=== PATIENT | male | born 1965 | race Caucasian/White ===

== ENCOUNTER 2021-07-27 16:23 | Inpatient (IN) | payer OTHER ==
[2021-07-27 17:33] LABS: #Lymphocytes 0.4 thou/uL (1.20-3.40); #Monocytes 0.1 thou/uL (0.11-0.59); #Neutrophils 3.3 thou/uL (1.40-6.50); %Basophils 1.1 % (0.0-1.0); %Eosinophils 0.1 % (0.0-10.0); %Lymphocytes 10.3 % (21.0-51.0); %Monocytes 2.3 % (0.0-10.0); %Neutrophils 86.2 % (42.0-75.0); Hemoglobin 15.8 g/dL (14.0-18.0); Mean Corpuscular HGB CONC 32.3 g/dL (32.0-36.0); Mean Corpuscular Hemoglobin 29.8 pg (27.0-31.0); Mean Corpuscular Volume 92.1 fL (78.0-98.0); Platelet Count 188 thou/uL (130-400); RBC Distribution Width 12.6 % (11.5-14.5); Red Blood Cell (RBC) Count 5.31 mill/uL (4.70-6.10); White Blood Cell (WBC) Count 3.8 thou/uL (4.8-10.8)
[2021-07-27 18:01] LABS: ALT (SGPT) 44 U/L (8-55); AST (SGOT) 48 U/L (5-34); Albumin 3.7 g/dL (3.5-5.0); Alkaline Phosphatase 95 U/L (40-110); Anion Gap 12 mmol/L (10-20); BUN (Urea Nitrogen) 17 mg/dL (8.4-25.7); Bilirubin, Total 0.6 mg/dL (0.2-1.2); Calc. Creatinine Clearance 0 mL/min (70-130); Calcium 8.3 mg/dL (7.8-10.44); Carbon Dioxide 26 mmol/L (22-29); Chloride 101 mmol/L (98-107); Globulin 3.1 g/dL (2.4-3.5); Glucose 179 mg/dL (70-105); Potassium 4.4 mmol/L (3.5-5.1); Protein, Total 6.8 g/dL (6.0-8.3); Sodium 135 mmol/L (136-145)
[2021-07-27] MEDS ORDERED: Albuterol 200 PUFF (6.7GM INHALER) ONE (18:31)
[2021-07-27] MEDS ORDERED: Enoxaparin Sodium 100 MG/ML SYRINGE ONE (21:01)
[2021-07-27] MEDS ORDERED: Communication Order-Pharmacy FS SCH (22:45)
[2021-07-27] MEDS ORDERED: Cepastat Lozenges 1 LOZ PO PRN (23:12)
[2021-07-27] MEDS ORDERED: Ondansetron PF 4 MG/2 ML Vial IVP PRN (23:13)
[2021-07-27] MEDS ORDERED: Benzonatate 100 MG CAP ONE (23:57)
[2021-07-27] MEDS ORDERED: Acetaminophen/Codeine 30-300mg Tablet ONE (23:57)
[2021-07-27] MEDS ORDERED: tiZANidine HCl 4 MG TAB PO SCH (23:59)
[2021-07-27] MEDS ORDERED: Acetaminophen/Codeine 30-300mg Tablet PO SCH (23:59)
[2021-07-28] MEDS: Benzonatate 100 MG CAP PO PRN ×2 (00:08→17:01)
[2021-07-28] MEDS: Lactated Ringer's 1,000 ML IV SCH ×3 (00:12→17:02)
[2021-07-28 04:05] LABS: SARS-CoV-2 NAA Rapid Test DETECTED (NotDetected)
[2021-07-28 05:41] LABS: #Lymphocytes 0.9 thou/uL (1.20-3.40); #Monocytes 0.4 thou/uL (0.11-0.59); #Neutrophils 3.5 thou/uL (1.40-6.50); %Basophils 0.7 % (0.0-1.0); %Eosinophils 0.1 % (0.0-10.0); %Lymphocytes 18.3 % (21.0-51.0); %Monocytes 8.6 % (0.0-10.0); %Neutrophils 72.4 % (42.0-75.0); Hemoglobin 14.3 g/dL (14.0-18.0); Mean Corpuscular HGB CONC 33.4 g/dL (32.0-36.0); Mean Corpuscular Hemoglobin 31.1 pg (27.0-31.0); Mean Corpuscular Volume 93.1 fL (78.0-98.0); Mean Platelet Volume 7.1 fL (7.4-10.4); Platelet Count 185 thou/uL (130-400); RBC Distribution Width 12.6 % (11.5-14.5); White Blood Cell (WBC) Count 4.9 thou/uL (4.8-10.8)
[2021-07-28 06:10] LABS: ALT (SGPT) 40 U/L (8-55); AST (SGOT) 40 U/L (5-34); Albumin 3.3 g/dL (3.5-5.0); Alkaline Phosphatase 77 U/L (40-110); Anion Gap 13 mmol/L (10-20); BUN (Urea Nitrogen) 20 mg/dL (8.4-25.7); Bilirubin, Total 0.4 mg/dL (0.2-1.2); CRP (Inflammatory) 8.19 mg/dL (= or < 0.5); Calc. Creatinine Clearance 115 mL/min (70-130); Calcium 8.4 mg/dL (7.8-10.44); Carbon Dioxide 26 mmol/L (22-29); Chloride 102 mmol/L (98-107); Globulin 2.6 g/dL (2.4-3.5); Glucose 138 mg/dL (70-105); Potassium 4.7 mmol/L (3.5-5.1); Protein, Total 5.9 g/dL (6.0-8.3); Sodium 136 mmol/L (136-145)
[2021-07-28] MEDS: Acetaminophen 500 MG TAB PO PRN (08:47)
[2021-07-28] MEDS: Enoxaparin Sodium 100 MG/ML SYRINGE SC SCH ×2 (08:47→20:03)
[2021-07-28] MEDS ORDERED: Dexamethasone 6 MG in Sodium Chloride 0.9% 50 ML IVPB SCH (09:00)
[2021-07-28] MEDS ORDERED: Dexamethasone 6 MG in Sodium Chloride 0.9% 50 ML SLOW IVP SCH (11:00)
[2021-07-28 17:01] VITALS: BMI 30.5
[2021-07-28] MEDS ORDERED: tiZANidine HCl 4 MG TAB PO SCH (21:00)
[2021-07-28] MEDS ORDERED: Acetaminophen/Codeine 30-300mg Tablet PO SCH (21:00)
[2021-07-29] MEDS ORDERED: Famotidine 20 MG TAB PO SCH (00:36)
[2021-07-29] MEDS: Lactated Ringer's 1,000 ML IV SCH (03:07)
[2021-07-29] MEDS: Acetaminophen 500 MG TAB PO PRN (07:34)
[2021-07-29] MEDS: Enoxaparin Sodium 100 MG/ML SYRINGE SC SCH (07:42)
[2021-07-29] MEDS: Benzonatate 100 MG CAP PO PRN (07:43)
[2021-07-29] MEDS ORDERED: Ketorolac Tromethamine 30 MG/ML VIAL IVP SCH (09:15)
[2021-07-29 09:18] LABS: #Monocytes 0.6 thou/uL (0.11-0.59); #Neutrophils 9.3 thou/uL (1.40-6.50); %Basophils 0.1 % (0.0-1.0); %Eosinophils 0.1 % (0.0-10.0); %Lymphocytes 9.5 % (21.0-51.0); %Monocytes 5.1 % (0.0-10.0); %Neutrophils 85.3 % (42.0-75.0); Hemoglobin 14.3 g/dL (14.0-18.0); Mean Corpuscular HGB CONC 34.1 g/dL (32.0-36.0); Mean Corpuscular Hemoglobin 31.5 pg (27.0-31.0); Mean Corpuscular Volume 92.4 fL (78.0-98.0); Mean Platelet Volume 6.4 fL (7.4-10.4); Platelet Count 242 thou/uL (130-400); RBC Distribution Width 12.4 % (11.5-14.5); Red Blood Cell (RBC) Count 4.54 mill/uL (4.70-6.10); White Blood Cell (WBC) Count 10.8 thou/uL (4.8-10.8)
[2021-07-29 09:38] LABS: ALT (SGPT) 50 U/L (8-55); AST (SGOT) 43 U/L (5-34); Albumin 3.1 g/dL (3.5-5.0); Alkaline Phosphatase 80 U/L (40-110); Anion Gap 13 mmol/L (10-20); BUN (Urea Nitrogen) 16 mg/dL (8.4-25.7); Bilirubin, Total 0.5 mg/dL (0.2-1.2); Calc. Creatinine Clearance 139 mL/min (70-130); Carbon Dioxide 26 mmol/L (22-29); Chloride 103 mmol/L (98-107); Globulin 2.4 g/dL (2.4-3.5); Glucose 118 mg/dL (70-105); Potassium 3.9 mmol/L (3.5-5.1); Protein, Total 5.5 g/dL (6.0-8.3); Sodium 138 mmol/L (136-145)
[2021-07-29] MEDS ORDERED: Dexamethasone 4 mg/ml Vial SLOW IVP SCH (11:00)
[2021-07-29 14:54] VITALS: BP 136/80; TEMP 97.8
[2021-07-29] MEDS ORDERED: Apixaban 5 MG TAB PO SCH (21:00)
== END 2021-07-29 15:30 | disposition home or self-care (01) | DRG 177 ==
LOC: ERS 16:23 → ERHOLD 20:55 → 2SW 22:15
PROVIDERS: ADMIT Family Medicine; ATTEND Family Medicine
PROC: 8E0ZXY6 Isolation (ICD-10-PCS; principal; 2021-07-27)
DX: U07.1 COVID-19 (principal); J12.82 Pneumonia due to coronavirus disease 2019; J96.01 Acute respiratory failure with hypoxia; I26.99 Other pulmonary embolism without acute cor pulmonale; E86.0 Dehydration; G89.29 Other chronic pain; M54.9 Dorsalgia, unspecified; Z79.01 Long term (current) use of anticoagulants; Z79.899 Other long term (current) drug therapy
CPT/HCPCS: 36415; 71045; 71275; 80053; 82728; 83615; 84484; 85025; 85379; 86140; 93005; 96372; J1100; J1650; J1885; J2405; J7120; U0002

== ENCOUNTER 2022-12-27 18:24 | Inpatient (IN) | payer BC, OTHER, SELFPAY ==
[2022-12-27 20:02] LABS: #Eosinphils 0.3 thou/uL (0.0-0.7); #Lymphocytes 2.5 thou/uL (1.20-3.40); #Monocytes 0.5 thou/uL (0.11-0.59); #Neutrophils 4.2 thou/uL (1.40-6.50); %Basophils 0.5 % (0.0-1.0); %Eosinophils 4.1 % (0.0-10.0); %Lymphocytes 33.1 % (21.0-51.0); %Monocytes 6.8 % (0.0-10.0); %Neutrophils 55.5 % (42.0-75.0); Mean Corpuscular HGB CONC 33.8 g/dL (32.0-36.0); Mean Corpuscular Hemoglobin 30.2 pg (27.0-31.0); Mean Corpuscular Volume 89.5 fl (78.0-98.0); Mean Platelet Volume 6.9 fL (7.4-10.4); Platelet Count 271 10x3/uL (130-400); RBC Distribution Width 12.8 % (11.5-14.5); Red Blood Cell (RBC) Count 4.96 mill/uL (4.70-6.10); White Blood Cell (WBC) Count 7.5 10x3/uL (4.8-10.8)
[2022-12-27 20:14] LABS: INR-International Normal Ratio 1.1; Prothrombin Time 14.7 sec (12.0-14.7)
[2022-12-27 20:15] LABS: PTT 31.7 sec (22.9-36.1)
[2022-12-27 20:23] LABS: ALT (SGPT) 19 U/L (8-55); AST (SGOT) 20 U/L (5-34); Albumin 4.2 g/dL (3.5-5.0); Alkaline Phosphatase 82 U/L (40-110); Anion Gap 12 mmol/L (10-20); BUN (Urea Nitrogen) 16 mg/dL (8.4-25.7); Bilirubin, Total 0.4 mg/dL (0.2-1.2); Calc. Creatinine Clearance 0 mL/min (70-130); Calcium 8.9 mg/dL (7.8-10.44); Carbon Dioxide 23 mmol/L (22-29); Chloride 106 mmol/L (98-107); Estimated GFR 95; Globulin 3.1 g/dL (2.4-3.5); Glucose 98 mg/dL (70-105); Potassium 3.9 mmol/L (3.5-5.1); Protein, Total 7.3 g/dL (6.0-8.3); Sodium 137 mmol/L (136-145)
[2022-12-27] MEDS ORDERED: Enoxaparin 120 MG/0.8 ML SYRINGE SC SCH (22:45)
[2022-12-27] MEDS ORDERED: Warfarin Sodium 3 MG TAB PO SCH (23:15)
[2022-12-27] MEDS ORDERED: Acetaminophen/Codeine 30-300mg Tablet ONE (23:20)
[2022-12-27] MEDS: Acetaminophen/Codeine 30-300mg Tablet PO SCH (23:28)
[2022-12-27] MEDS ORDERED: tiZANidine HCl 4 MG TAB PO SCH (23:30)
[2022-12-28 01:21] VITALS: BMI 32.5
[2022-12-28] MEDS: Enoxaparin 120 MG/0.8 ML SYRINGE SC SCH ×2 (09:39→20:08)
[2022-12-28] MEDS ORDERED: Warfarin Sodium 10 MG TAB PO SCH (17:00)
[2022-12-28] MEDS ORDERED: Prochlorperazine Edisylate 10 MG in Sodium Chloride 0.9% 50 ML IVPB SCH (18:00)
[2022-12-28] MEDS: tiZANidine HCl 4 MG TAB PO SCH (20:10)
[2022-12-28] MEDS: Acetaminophen/Codeine 30-300mg Tablet PO SCH (20:11)
[2022-12-28] MEDS ORDERED: Ondansetron PF 4 MG/2 ML Vial IVP PRN (20:46)
[2022-12-28] MEDS ORDERED: tiZANidine HCl 4 MG TAB PO SCH (21:00)
[2022-12-29 05:08] LABS: Hemoglobin 15.8 g/dL (14.0-18.0); Platelet Count 237 10x3/uL (130-400)
[2022-12-29 05:21] LABS: INR-International Normal Ratio 1.4; Prothrombin Time 17.6 sec (12.0-14.7)
[2022-12-29] MEDS: Enoxaparin 120 MG/0.8 ML SYRINGE SC SCH ×2 (09:55→21:18)
[2022-12-29] MEDS: Warfarin Sodium 3 MG TAB PO SCH (17:15)
[2022-12-29] MEDS: Acetaminophen/Codeine 30-300mg Tablet PO SCH (21:21)
[2022-12-29] MEDS: tiZANidine HCl 4 MG TAB PO SCH (21:22)
[2022-12-30 05:41] LABS: INR-International Normal Ratio 1.5
[2022-12-30 06:33] LABS: ALT (SGPT) 23 U/L (8-55); AST (SGOT) 20 U/L (5-34); Albumin 3.7 g/dL (3.5-5.0); Alkaline Phosphatase 79 U/L (40-110); Anion Gap 13 mmol/L (10-20); BUN (Urea Nitrogen) 16 mg/dL (8.4-25.7); Bilirubin, Total 0.3 mg/dL (0.2-1.2); Calc. Creatinine Clearance 125 mL/min (70-130); Carbon Dioxide 23 mmol/L (22-29); Chloride 108 mmol/L (98-107); Estimated GFR 88; Globulin 2.9 g/dL (2.4-3.5); Glucose 108 mg/dL (70-105); Potassium 3.9 mmol/L (3.5-5.1); Protein, Total 6.6 g/dL (6.0-8.3); Sodium 140 mmol/L (136-145)
[2022-12-30] MEDS: Enoxaparin 120 MG/0.8 ML SYRINGE SC SCH ×2 (08:58→21:13)
[2022-12-30] MEDS ORDERED: Polyethylene Glycol 3350 17 GM Packet PO SCH (10:00)
[2022-12-30] MEDS: Warfarin Sodium 3 MG TAB PO SCH (16:40)
[2022-12-30] MEDS ORDERED: diphenhydrAMINE 25 MG CAP PO PRN (18:13)
[2022-12-30] MEDS ORDERED: diphenhydrAMINE 25 MG CAP PO SCH (18:13)
[2022-12-30] MEDS: Acetaminophen/Codeine 30-300mg Tablet PO SCH (21:13)
[2022-12-30] MEDS: tiZANidine HCl 4 MG TAB PO SCH (21:14)
[2022-12-31] MEDS ORDERED: FLU VACC QS2022-23(6MOS UP)/PF 60 MCG/0.5 ML SYRINGE IM ONE (01:30)
[2022-12-31 06:25] LABS: Hemoglobin 15.3 g/dL (14.0-18.0); Platelet Count 247 10x3/uL (130-400)
[2022-12-31 06:31] LABS: INR-International Normal Ratio 1.8; Prothrombin Time 21.2 sec (12.0-14.7)
[2022-12-31] MEDS ORDERED: Polyethylene Glycol 3350 17 GM Packet PO SCH (09:00)
[2022-12-31] MEDS: Enoxaparin 120 MG/0.8 ML SYRINGE SC SCH ×2 (09:47→20:11)
[2022-12-31] MEDS: Warfarin Sodium 3 MG TAB PO SCH (17:14)
[2022-12-31] MEDS: Acetaminophen/Codeine 30-300mg Tablet PO SCH (20:11)
[2022-12-31] MEDS: tiZANidine HCl 4 MG TAB PO SCH (20:12)
[2023-01-01 06:23] LABS: INR-International Normal Ratio 1.8; Prothrombin Time 21.2 sec (12.0-14.7)
[2023-01-01 07:22] LABS: #Eosinphils 0.3 thou/uL (0.0-0.7); #Monocytes 0.5 thou/uL (0.11-0.59); #Neutrophils 3.6 thou/uL (1.40-6.50); %Basophils 0.7 % (0.0-1.0); %Lymphocytes 30.7 % (21.0-51.0); %Monocytes 7.6 % (0.0-10.0); Hemoglobin 15.6 g/dL (14.0-18.0); Mean Corpuscular HGB CONC 33.3 g/dL (32.0-36.0); Mean Corpuscular Hemoglobin 30.4 pg (27.0-31.0); Mean Corpuscular Volume 91.3 fl (78.0-98.0); Mean Platelet Volume 7.7 fL (7.4-10.4); Platelet Count 241 10x3/uL (130-400); Red Blood Cell (RBC) Count 5.14 mill/uL (4.70-6.10); White Blood Cell (WBC) Count 6.4 10x3/uL (4.8-10.8)
[2023-01-01 07:30] LABS: ALT (SGPT) 31 U/L (8-55); AST (SGOT) 25 U/L (5-34); Alkaline Phosphatase 79 U/L (40-110); Anion Gap 13 mmol/L (10-20); BUN (Urea Nitrogen) 11 mg/dL (8.4-25.7); Bilirubin, Total 0.6 mg/dL (0.2-1.2); Calc. Creatinine Clearance 127 mL/min (70-130); Carbon Dioxide 25 mmol/L (22-29); Chloride 104 mmol/L (98-107); Estimated GFR 89; Globulin 2.9 g/dL (2.4-3.5); Glucose 90 mg/dL (70-105); Potassium 4.2 mmol/L (3.5-5.1); Protein, Total 6.9 g/dL (6.0-8.3); Sodium 138 mmol/L (136-145)
[2023-01-01 08:26] VITALS: BP 171/99; TEMP 98.3
== END 2023-01-01 09:05 | disposition left against medical advice (07) | DRG 300 ==
LOC: ERS 18:24 → ERHOLD 21:58 → MSONC 12-28 00:58
PROVIDERS: ADMIT Student in an Organized Health Care Education/Training Program; ATTEND Student in an Organized Health Care Education/Training Program
DX: I82.432 Acute embolism and thrombosis of left popliteal vein (principal); D68.51 Activated protein C resistance; Z20.822 Contact with and (suspected) exposure to COVID-19; G89.29 Other chronic pain; M54.9 Dorsalgia, unspecified; Z79.899 Other long term (current) drug therapy; Z98.890 Other specified postprocedural states; Z82.49 Family history of ischemic heart disease and other diseases of the circulatory system; Z86.711 Personal history of pulmonary embolism; Z86.16 Personal history of COVID-19; Z86.718 Personal history of other venous thrombosis and embolism
CPT/HCPCS: 36415; 80053; 85014; 85018; 85025; 85049; 85610; 85730; J0780; J1650; J2405; U0003; U0005